=== PATIENT | male | born 1940 | race Caucasian/White ===

== ENCOUNTER → 2020-07-22 11:14 | Outpatient (CLI) | payer OTHER, SELFPAY ==
--- NOTE | ~2020-07-22 | XR_ITS ---
EXAMINATION: XR lumbar spine 2-3V DATE: 07/22/2020 11:43 INDICATION: Bilateral lower limb numbness and low back pain TECHNIQUE: Anteroposterior and lateral views of the lumbar spine, and cone-down lateral view of the l umbosacral junction were obtained. COMPARISON: CT, 12/25/2016 FINDINGS: There are age indeterminate compression versus burst fractures of the T12, L3, and L4 verte bral bodies. Bone alignment is normal. There is mild facet osteoarthritis of the lower lumbar spine. Brachytherapy seeds are noted in the prostate. There is calcified atherosclerosis. Cholelithiasis is noted. IMPRESSION: 1. Age-indeterminate compression versus burst fractures of the T12, L3, and L4 vertebral bodies. Reviewed, dictated and finalized at location A. ORK SUPPORT ADMINISTRATOR
== END ==
PROVIDERS: PCP Family Medicine Adolescent Medicine; Visit Provider Family Medicine Adolescent Medicine
DX: M54.5 Low back pain (principal); R93.7 Abnormal findings on diagnostic imaging of other parts of musculoskeletal system
CPT/HCPCS: 72100

== ENCOUNTER 2020-08-01 12:00 | Emergency (ER) | payer OTHER, SELFPAY ==
--- NOTE | ~2020-08-01 | XR_ITS ---
XR hip LT 2V w AP pelvis DATE: 08/01/2020 13:55 INDICATION: Fall. Left hip pain. TECHNIQUE: AP pelvis. AP and lateral views of left hip. COMPARISON: None FINDINGS: There is diffuse osteopenia. The pubic symphysis and sacroiliac joints are intact. Hip joint spaces appear symmetric and relativel y preserved. The psoas of hip dislocation on either side. There is evidence of a probable subtle nondisplaced left subcapital femoral neck fracture. CT examina tion of left hip is recommended to confirm the suspected acute left subcapital femoral neck fracture. Fracture deformities of L3 and L4, also present on 07/22/2020 lumbar spine. Multiple radial opaque seeds overlie the prostate bed. IMPRESSION: Suspected acute left subcapital femoral neck nondisplaced fracture; consider CT left exam ination to confirm acute fracture L3 and L4 fractures Diffuse osteopenia Reviewed, dictated and finalized at location B. MODEL DEPARTMENT SUPERVISOR IMPRESSION: Suspected acute left subcapital femoral neck nondisplaced fracture; consider CT left examination to confirm acute fracture L3 and L4 fractures Diffuse osteopenia
--- NOTE | ~2020-08-01 | CT_ITS ---
EXAMINATION: CT thoracic lumbar wo con DATE: 08/01/2020 13:50 INDICATION: Low back pain. Fall. TECHNIQUE: Computed tomography (CT) of the thoracic and lumbar spine was performed without intravenou s contrast. Automated exposure control and iterative reconstruction technique were employed. The dose -length product was 852.47 mGy-cm. COMPARISON: Chest CT 12/25/2016, lumbar spine radiographs 07/22/2020 FINDINGS: CT THORACIC SPINE: There are trace pleural effusions. There is a small sliding hiatal hernia. Calcifi ed left hilar lymph nodes are consistent with old granulomatous disease. There are gallstones in the gallbladder, which is normal in size. Bone alignment is normal. There is a burst fracture of superior endplate of T3 with 1/5 loss of height. There is a burst fracture of T12 with 3/5 loss of height, co pedro luis cleft, and retropulsion of bone 4 mm into central spinal canal. There is a hemangioma in T7 emilia tebral body. Vertebral body heights are normal. There is multilevel mild facet joint osteoarthritis. No neural foraminal stenosis. There is mild central canal stenosis at T12. CT LUMBAR SPINE: There is 4 degrees dextrocurvature of lumbar spine. There is a burst fracture of L3 with 4/5 loss of height and retropulsion of bone 3 mm into central spinal canal. There is a burst fra cture of L4 with 4/5 loss of height and retropulsion of bone 4 mm into central spinal canal. The foll owing disc levels are specifically discussed: L1-L2: The disc does not extend beyond the endplate margin. There is mild bilateral facet joint osteo arthritis. There is no neural foraminal stenosis. There is no central canal stenosis. L2-L3: The disc is bulging. There is mild bilateral facet joint osteoarthritis. There is moderate aftab ateral neural foraminal stenosis. There is moderate central canal stenosis. L3-L4: The disc is bulging. There is mild bilateral facet joint osteoarthritis. There is moderate aftab ateral neural foraminal stenosis. There is moderate central canal stenosis. L4-L5: The disc is bulging. There is mild bilateral facet joint osteoarthritis. There is moderate aftab ateral neural foraminal stenosis. There is moderate central canal stenosis. L5-S1: The disc is bulging. There is moderate bilateral facet joint osteoarthritis. There is mild aftab ateral neural foraminal stenosis. There is mild central canal stenosis. IMPRESSION: 1. Acute versus subacute T3 burst fracture. 2. Subacute T12 burst fracture. 3. Subacute versus chronic L3 and L4 burst fractures. 4. Mild thoracic spondylosis and moderate lumbar spondylosis. Reviewed, dictated and finalized at location A. MBLER FILTERS
[2020-08-01 12:14] VITALS: BP 106/64; PULSE 114; RESP 20; TEMP 37; O2SAT 95
--- NOTE | 2020-08-01 13:07 | ED.BACK ---
HPI - Back Pain/Injury General Chief Complaint: Fall Stated Complaint: FALL Time Seen by Provider: 08/01/20 12:12 Source: patient Mode of arrival: wheelchair Limitations: no limitations History of Present Illness HPI Narrative: Patient is 80-year-old male complaining of low back pain and left pelvic pain after he slid down from his recliner prior to arrival. Patient denies any head, neck, chest or any other extremity pain/injury. Patient denies any loss of consciousness. Per patient has a history of balance problems and generalized weakness problems and he tried to get out of his recliner on his own without her help, which she usually helps him get up and that is why he slid down. Related Data Home Medications Medication Instructions Recorded Confirmed ascorbic acid (vitamin C) [Vitamin 500 mg PO DAILY 08/01/20 C] atorvastatin 80 mg PO DAILY 08/01/20 calcitonin (salmon) 1 spray INTRANASAL (ALT) DAILY 08/01/20 clopidogrel 75 mg PO DAILY 08/01/20 diltiazem HCl 30 mg PO BID 08/01/20 furosemide 40 mg PO DAILY 08/01/20 glimepiride 1 mg PO DAILY 08/01/20 hydroxyurea 1,000 mg PO DAILY 08/01/20 labetalol 200 mg PO DAILY 08/01/20 losartan 100 mg PO DAILY 08/01/20 Allergies Allergy/AdvReac Type Severity Reaction Status Date / Time morphine AdvReac Nausea Verified 08/01/20 13:03 Review of Systems Review of Systems: All systems reviewed & are unremarkable except as noted in HPI and below Constitutional: Constitutional: Denies body ache(s), Denies chills, Denies excessive sweating, Denies fatigue, Denies fever(s), Denies headache(s), Denies lethargy, Denies malaise, Denies weakness and Denies weight loss Eyes: Eyes: Denies blurry vision, Denies change in vision and Denies loss of vision ENT: Denies dizziness, Denies ear discharge, Denies headache(s), Denies lip swelling, Denies epistaxis, Denies nasal congestion, Denies neck pain, Denies throat swelling and Denies tongue swelling Cardiovascular: Cardiovascular: Denies chest pain, Denies chest pain at rest, Denies chest pain with activity, Denies diaphoresis, Denies rapid heart rate, Denies edema, Denies irregular heart rhythm, Denies lightheadedness, Denies palpitations, Denies dyspnea and Denies dyspnea on exertion Respiratory: Respiratory: Denies chest congestion, Denies cough, Denies hemoptysis, Denies dyspnea and Denies dyspnea on exertion Gastrointestinal: Gastrointestinal: Denies abdominal pain, Denies melena, Denies hematochezia, Denies diarrhea, Denies nausea, Denies vomiting and Denies hematemesis Musculoskeletal: Musculoskeletal: Denies deformity, Denies joint swelling, Denies neck pain and Denies numbness Neurologic: Denies Abnormal speech present, Denies abnormal gait, Denies confusion, Denies dizziness, Denies headache(s), Denies focal weakness, Denies loss of vision, Denies numbness, Denies Other visual disturbances, Denies Sensory deficit (Neuro) and Denies weakness Psychiatric: Psychiatric: Denies confusion, Denies depression, Denies auditory hallucinations, Denies homicidal ideation and Denies suicidal ideation Endocrine: Endocrine: Denies cold intolerance, Denies excessive sweating, Denies fatigue, Denies heat intolerance and Denies palpitations Hematologic/Lymphatic: Hematologic/Lymphatic: Denies easy bleeding and Denies easy bruising Allergic/Immunologic: Allergic/Immunologic: Denies lip swelling, Denies throat swelling and Denies tongue swelling PMFSH Social History Social History Alcohol intake: current Exam Const: General: cooperative, comfortable, no acute distress, well developed, alert and awake; No confusion Orientation/consciousness: oriented to person, oriented to place, oriented to time, patient oriented x3 and No confusion Limitations: no limitations Other: Frail HENMT: Head: normal to inspection, normocephalic and atraumatic Ears: hearing grossly normal bilaterally, TM normal on the right and TM normal on the left Gene
[2020-08-01] MEDS: HYDROmorphone HCL INJ (*CRX) 1 MG/ML SYR 0.5 MG IV PUSH ×3 (13:25→19:32)
[2020-08-01 16:12] VITALS: BP 105/59; PULSE 97; RESP 20; O2SAT 94
[2020-08-01] MEDS: LACTATED RINGERS 1,000 ML 150 ML IV CONT (16:41)
[2020-08-01 19:36] VITALS: BP 131/53; PULSE 104; RESP 20; TEMP 37.3; O2SAT 96
== END 2020-08-01 19:39 | disposition short-term general hospital (02) ==
PROVIDERS: Emergency Provider Emergency Medicine; PCP Family Medicine Adolescent Medicine
DX: S22.031A Stable burst fracture of third thoracic vertebra, initial encounter for closed fracture (principal); S22.081A Stable burst fracture of T11-T12 vertebra, initial encounter for closed fracture; S32.031A Stable burst fracture of third lumbar vertebra, initial encounter for closed fracture; S32.041A Stable burst fracture of fourth lumbar vertebra, initial encounter for closed fracture; S72.012A Unspecified intracapsular fracture of left femur, initial encounter for closed fracture; M47.814 Spondylosis without myelopathy or radiculopathy, thoracic region; M47.816 Spondylosis without myelopathy or radiculopathy, lumbar region; M85.80 Other specified disorders of bone density and structure, unspecified site; W07.XXXA Fall from chair, initial encounter
CPT/HCPCS: 72128; 72131; 73502; 96361; 96374; 96376; 99285; J1170; J7120

== ENCOUNTER 2020-08-06 16:20 | IRF | payer MEDICARE, OTHER, SELFPAY ==
[2020-08-06 17:00] VITALS: BP 135/64; PULSE 81; RESP 20; TEMP 36.9; O2SAT 96; BMI 23.3
--- NOTE | 2020-08-06 17:14 | ADMGEN ---
This patient, Kalyan Martinez, was admitted to [facility] Room 225-01. Patient/family oriented to hospital policies and general routines including ID bracelet, bed and alarms, visiting hours, pain management, procedures, bathroom and other care routines, personal items, smoking policy, room service/diet, and visiting hours. Information on how to activate the Rapid Response Team has been discussed. Patient/Family are encouraged to report perceived risks to care and to ask questions if they do not understand what they are told or what they should do.
[2020-08-06 18:15] LABS: Glucose Point of Care 117 (65-105)
[2020-08-06 20:00] VITALS: PULSE 75; RESP 18; O2SAT 95
[2020-08-06 22:00] VITALS: BP 146/61; PULSE 75; RESP 18; TEMP 36.6; O2SAT 95
[2020-08-06 22:58] LABS: Glucose Point of Care 130 (65-105)
[2020-08-07 05:40] LABS: Basophils Absolute Auto 0.2 K/mm3 (0.0-0.1); Basophils Percent Auto 0.9 % (0.2-1.2); Eosinophils Absolute Auto 0.3 K/mm3 (0-0.3); Eosinophils Percent Auto 1.5 % (0-4.4); Hematocrit 36.2 % (42.0-52.0); Hemoglobin 12.2 g/dL (14.0-18.0); Immature Granulocyte Absolute 0.18 K/mm3 (0.00-0.031); Immature Granulocyte Percent A 0.9 % (0-0.5); Lymphocytes Absolute Auto 1.05 K/mm3 (0.9-3.2); Lymphocytes Percent Auto 5.2 % (18.3-44.2); Mean Corpuscular HGB Conc 33.7 g/dl (32-36); Mean Corpuscular Hemoglobin 42.7 pg (26-34); Mean Corpuscular Volume 126.6 fl (80-100); Mean Platelet Volume 10.3 fl (7.4-10.4); Monocytes Absolute Auto 0.7 K/mm3 (0.1-0.6); Monocytes Percent Auto 3.6 % (2.6-8.5); Neutrophils Absolute Auto 17.7 K/mm3 (1.3-6.7); Neutrophils Percent Auto 87.9 % (45.5-73.1); Platelet Count Result 368 k/mm3 (150-375); Red Blood Count 2.86 M/mm3 (4.6-6.20); Red Cell Distribution Width 13.1 % (11.5-14.5); White Blood Count 20.1 K/mm3 (4.5-10.0)
[2020-08-07 06:00] VITALS: BP 145/69; PULSE 85; RESP 18; TEMP 36.7; O2SAT 94
[2020-08-07 06:01] LABS: Anion Gap 3 mmol/L (8-16); Blood Urea Nitrogen 16 mg/dL (9-20); Calcium 7.6 mg/dL (8.4-10.2); Carbon Dioxide 28 mmol/L (22-30); Chloride 108 mmol/L (98-107); Estimated CRCL calculation 57 ml/min; Estimated Glomerular Filt Rate > 60; Glucose 92 mg/dL (75-110); Potassium 3.9 mmol/L (3.4-5.0); Sodium 139 mmol/L (137-145)
[2020-08-07 06:54] LABS: Glucose Point of Care 117 (65-105)
[2020-08-07 07:39] LABS: Hemoglobin A1C 5.4 % (<5.7)
[2020-08-07 08:00] VITALS: PULSE 85; RESP 18; O2SAT 94
[2020-08-07] MEDS: dilTIAZem HCL 30 MG TABLET PO ×3 (08:35→17:58)
[2020-08-07] MEDS: CLOPIDOGREL BISULFATE 75 MG TABLET PO (08:36)
[2020-08-07] MEDS: ATORVASTATIN 40 MG TABLET 80 MG PO (08:36)
[2020-08-07] MEDS: GLIMEPIRIDE 1 MG TABLET PO (08:36)
[2020-08-07] MEDS: FUROSEMIDE 40 MG TABLET PO (08:36)
[2020-08-07] MEDS: LOSARTAN POTASSIUM 100 MG TABLET PO (08:37)
[2020-08-07] MEDS: HYDROXYUREA (*CHEMO) 500 MG CAPSULE 1000 MG PO (08:37)
[2020-08-07] MEDS: CALCITONIN NASAL 200 UNITS/SPRAY 3.7 ML BOTTLE 1 SPRAY NASAL (08:38)
[2020-08-07 08:44] VITALS: TEMP 36.7
[2020-08-07] MEDS: ACETAMINOPHEN 500 MG TABLET 1000 MG PO (08:44)
--- NOTE | 2020-08-07 10:46 | PCWOUND ---
WOCN NOTE Received consult for patient who has wounds to scalp and upper extremities. Patient already has orders for wound care from doctors herrera Nunez. Spoke with Marychuy ORONA for patient, who states that patient refusing to have dressings changed by her due to pain. Will not see patient as there are no changes to his care to be made. Will follow if needed.
[2020-08-07 11:54] LABS: Glucose Point of Care 201 (65-105)
[2020-08-07 12:43] VITALS: BMI 23.3
--- NOTE | 2020-08-07 13:01 | WPDREHABHP ---
H&P: HPI History of Present Illness Date/Time: 08/07/20 13:01 HISTORY OF PRESENT ILLNESS: The patient's primary rehab impairment category is major multiple trauma without brain or spinal cord injury The etiologic diagnosis is left femur neck fracture, T3-T4 burst fracture, and L3-4 compression fractures I saw this patient [id number] on August 07, 2020 at 12 noon The patient is a 80 years old right-handed male with a past medical history of diabetes mellitus, polycythemia vera, prostatic cancer, aortic dissection, squamous cell skin cancer who presented to [facility] on August 01, 2020 to slipping off his recliner. The patient's family had to help him up and he was unable to ambulate. Imaging demonstrated a left femur neck fracture, T3-T4 burst fractures, and L3-4 compression fractures. The patient was transferred to [facility] the same day for orthopedic evaluation. Orthopedic surgery trauma was consulted. MRI revealed a left nondisplaced subcapital femur neck fracture. Patient underwent a percutaneous left hip pinning on August 03, [address] Basilio bates. He is weight-bearing at touch toe to the left lower extremity with a walker. Neurosurgery was consulted for the T3-T4 burst fractures and L3-L4 compression fractures. The CT scan of the thoracic and lumbar spine demonstrated a T3 burst fracture a T12 burst fracture with 40% height loss and 4mm retropulsion into the canal as well as L3 and L4 compression fractures with minimal retropulsion into the canal. The patient was at his neurological baseline upon examination and the plan is for non operative management with a TLSO Brace. The fractures are thought to be pathological in nature. Oncology was consulted and per radiation oncologist, the patient will not have a radiation or oncology treatment while inpatient for rehab. Patient's hospitalization has been significant for postoperative pain, hypertension, cytosis, hypokalemia hypocalcemia, hypertension. The patient's pain is now controlled on oral analgesics, attention has resolved, and hypertension is being managed with oral medications and leukocytosis is down trending. Patient's baseline WBC levels were 16 to 18 patient has a follow-up scheduled on September 12, 2020 with in [facility] 6 a. Patient will discharged to rehab on Plavix for long-term DVT prophylaxis #COVID: the patient has not traveled outside the [place] or had contact with someone who is ill that has traveled outside the [place] in the past 21 days. The patient has not traveled to an area of the [place] that is experiencing known transmission of the Coronavirus and has not had close personal contact with anyone that has. The patient does not have a fever patient is not experiencing lower respiratory illness symptoms negative COVID test on August 06, 2020 therapy was initiated at the acute care facility and the patient was transferred to us from [facility] on August 06, 2020 # past surgery or falls the patient has had a major surgery in the last 100 days the patient has had multiple falls in the past year the patient has had falls with injury in the past PAST MEDICAL HISTORY: diabetes mellitus, polycythemia vera, squamous cell skin cancer, prostatic cancer, and aortic dissection. 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 and lives with . He denies tobacco, alcohol, or drug abuse. He is a former smoker and quit in 1978. The patient is lives with his in a 1 level home with sunken living room with 1 step to enter. The patient was independent previously and used a walker the last 2 to 3 weeks. is available to assist him 14/02 FAMILY HISTORY: sister with breast cancer, colon cancer. PRIOR LEVEL OF FUNCTION: Eating was [INDEPENDENT] Oral Care was [INDEPENDENT] Toileting Hygiene was [INDEPENDENT] Shower/Bathing was [INDEPENDENT] Upper Body D
[2020-08-07 14:00] VITALS: BP 117/58; PULSE 86; RESP 18; TEMP 37.3; O2SAT 96
--- NOTE | 2020-08-07 14:20 | RPD ---
INDIVIDUALIZED PLAN OF CARE FOR Kalyan Martinez Brief Synthesis of Pre-Admission Screen, Post-Admission Evaluation and Therapy Evaluations: The patient presents to rehab with major multiple trauma of left femoral neck fracture, T3/T4 burst fractures, and L3/L4 compression fracture. Comorbidities include polycythemia vera, squamous cell carcinoma, prostate cancer, aortic dissection, acute post-traumatic pain, status post percutaneous left hip pinning, hypertension, multiple skin lesions, scalp laceration with exposed bone, hypokalemia, hypocalcemia, and leukocytosis. The complexity of the patient's medical management, nursing, and therapy needs require an inpatient rehab hospital stay with a physician-led interdisciplinary team approach. The patient?s needs will be best met in an intensive program vs. at a lower level of care. The patient requires physician services for medical oversight, management of postop complications in setting of present comorbidities, and pain management. Post-op complications have included acute blood loss anemia, acute post-operative pain, hypotension, hypertension, hypokalemia, hypocalcemia, and leukocytosis. He will be followed at least three times a week by the rehabilitation physician. Orthopedics may see the patient at the frequency of their discretion. The patient requires nursing services for DVT prophylactics, infection protection, medication management and education, pressure relief, and wound care. Deficits include:ADLs, Balance, Endurance, Family Training/Education, Mobility, Pain Management, ROM, Safety, Strength, and Transfers. Paste Mixer Liquid/Case Management for: Discharge Planning and Patient/Family Counseling Physical Therapy: 5 days per week for 90 minutes. Treatments may include: Therapeutic Exercise, Gait Training, Neuromuscular Re-education, Transfer Training, Community Reintegration, Bed Mobility, Patient/Family Education, Wheelchair Mobility Group Therapy/Concurrent Therapy Rationales: -Improve attention span during functional activities in a distracted environment. -Enhance problem solving and/or adequate judgment skills during functional activities in a distracted environment. -Promote increased safety awareness in a distracted environment to reduce fall risk with functional tasks, transfers, and ambulation to allow a more safe, self-sufficient return to the home environment. -Improve dynamic balance skills to promote safety and independence with functional activities in a distracted environment for maximum gain. Occupational Therapy: 5 days per week for 90 minutes. Treatments may include: Therapeutic Exercise, Therapeutic Activity, Cognitive Training, Self-Care Transfer Training, Community Reintegration, Home Management, Patient/Family Education, Wheelchair Mobility Training, Energy Conservation Training Group Therapy/Concurrent Therapy Rationales: -Allow therapist to observe and teach generalization and carry-over of skills learned in individual therapy. -Enhance problem solving and sequencing skills during therapeutic activities in a distracted environment. -Promote increased safety awareness in a realistic setting to reduce fall risk with functional tasks due to visual and verbal distractions. -Increase functional level with ADLs, ADL transfers and use of adaptive equipment through therapeutic activities with others while promoting safety to allow a more safe, self-sufficient return home. Medical Prognosis: Good Anticipated Length of Stay: 14 days Rehab Goals: Eating Goal: 05-Setup or Clean Up Assistance Oral Hygiene Goal: 05-Setup or Clean Up Assistance Toileting Hygiene Goal: 06-Independent Shower/Bathe Self Goal: 03-Partial/Moderate Assistance Upper Body Dressing Goal: 03-Partial/Moderate Assistance Lower Body Dressing Goal: 03-Partial/Moderate Assistance Putting On/Taking Off Footwear Goal: 02-Substantial/Maximal Assistance Rolling Left and Right Goal: 06-Independent Sit to Lying Goal: 06-Independent
[2020-08-07 16:48] LABS: Glucose Point of Care 96 (65-105)
[2020-08-07 20:00] VITALS: PULSE 86; RESP 18; O2SAT 96
[2020-08-07 22:00] VITALS: BP 137/63; PULSE 75; RESP 18; TEMP 36.7; O2SAT 97
[2020-08-08 03:44] LABS: Glucose Point of Care 107 (65-105)
[2020-08-08 05:11] LABS: Basophils Absolute Auto 0.2 K/mm3 (0.0-0.1); Basophils Percent Auto 0.9 % (0.2-1.2); Eosinophils Absolute Auto 0.2 K/mm3 (0-0.3); Eosinophils Percent Auto 1.5 % (0-4.4); Hematocrit 35.8 % (42.0-52.0); Hemoglobin 11.9 g/dL (14.0-18.0); Immature Granulocyte Absolute 0.15 K/mm3 (0.00-0.031); Immature Granulocyte Percent A 0.9 % (0-0.5); Lymphocytes Absolute Auto 1.17 K/mm3 (0.9-3.2); Lymphocytes Percent Auto 7.2 % (18.3-44.2); Mean Corpuscular HGB Conc 33.2 g/dl (32-36); Mean Corpuscular Hemoglobin 41.3 pg (26-34); Mean Corpuscular Volume 124.3 fl (80-100); Mean Platelet Volume 9.9 fl (7.4-10.4); Monocytes Absolute Auto 0.7 K/mm3 (0.1-0.6); Monocytes Percent Auto 4.4 % (2.6-8.5); Neutrophils Absolute Auto 13.9 K/mm3 (1.3-6.7); Neutrophils Percent Auto 85.1 % (45.5-73.1); Platelet Count Result 358 k/mm3 (150-375); Red Blood Count 2.88 M/mm3 (4.6-6.20); Red Cell Distribution Width 13.2 % (11.5-14.5); White Blood Count 16.3 K/mm3 (4.5-10.0)
[2020-08-08 06:00] VITALS: BP 144/59; PULSE 75; RESP 18; TEMP 36.7; O2SAT 97
[2020-08-08 06:05] LABS: Glucose Point of Care 84 (65-105)
[2020-08-08] MEDS: FUROSEMIDE 40 MG TABLET PO (08:45)
[2020-08-08] MEDS: dilTIAZem HCL 30 MG TABLET PO ×2 (08:45→17:01)
[2020-08-08] MEDS: GLIMEPIRIDE 1 MG TABLET PO (08:45)
[2020-08-08] MEDS: HYDROXYUREA (*CHEMO) 500 MG CAPSULE 1000 MG PO (08:46)
[2020-08-08] MEDS: CALCITONIN NASAL 200 UNITS/SPRAY 3.7 ML BOTTLE 1 SPRAY NASAL (08:46)
[2020-08-08] MEDS: CLOPIDOGREL BISULFATE 75 MG TABLET PO (08:46)
[2020-08-08] MEDS: ATORVASTATIN 40 MG TABLET 80 MG PO (08:46)
[2020-08-08] MEDS: LOSARTAN POTASSIUM 100 MG TABLET PO (08:46)
--- NOTE | 2020-08-08 10:29 | WPDNEURORHBP ---
Subjective Date/time seen: 08/08/20 10:29 80 years old with major multiple trauma without brain or spinal cord injuries trauma includes left femur neck fracture T3-T4 burst fracture at L3-4 compression fracture, his lab today revealed WBC 16.3 which is less than 20.1 when he came in globin 11.9 platelet count of 358, has remained afebrile with temp of 36.7? 75 patient 18 pulse ox 97% on room air blood pressure 144/59 Review of Systems Review of Systems: All systems reviewed & are unremarkable except as noted in HPI and below Functional Status Ambulation Ability Ability to Ambulate 10 Feet: Moderate Assistance X 1 Ambulation Assistive Devices: Walker, Platform Exam Const: General: cooperative and no acute distress Nutritional Appearance: average body habitus Orientation/consciousness: patient oriented x3 HENMT: Head: normocephalic Ears: other ( hearing deficit) General nose exam: Normal nares present and No nasal discharge present Face and sinus: normal facial exam Mouth: Yes Normal oral and palatal mucosa present Eyes: General: appearance normal, both eyes and all related structures Resp: Effort & Inspection: normal respiratory effort Auscultation: clear to auscultation bilaterally Cardio: Jugular venous distension: no JVD Rate: regular rate Rhythm: regular rhythm GI: Auscultation: normal bowel sounds Skin: General skin exam: crusts, dry skin, eschar and scars Lesions: lesion noted Wounds: wounds noted Nails: normal Neuro: General: patient oriented x3 and moves all extremities Cranial nerves: Yes CN's II-XII intact bilaterally Cognition (Neuro): normal cognition Speech: normal speech Gait exam (Neuro): Normal gait present Deep tendon reflexes (DTR's): Right triceps reflex intensity grade: 1+, Left triceps reflex intensity grade: 1+, Rt Biceps (C5, C6): 1+, Left biceps reflex intensity grade: 1+, Right brachioradialis reflex intensity grade: 1+, Left brachioradialis reflex intensity grade: 1+, Right patellar reflex intensity grade: 1+, Left patellar reflex intensity grade: 1+, Right ankle reflex intensity grade: 1+ and Left ankle reflex intensity grade: 1+ Plantar Reflex Responses: downgoing: bilateral Coordination: [id number] test normal Psych: Appearance: grossly normal Objective Data Vital Signs Vital Signs: Vital Signs - 24 hr 08/07/20 14:00 08/07/20 20:00 08/07/20 22:00 Temperature 37.3 C 36.7 C Pulse Rate 86 86 75 Respiratory Rate 18 18 18 Blood Pressure 117/58 L 137/63 Pulse Oximetry 96 96 97 08/08/20 06:00 Temperature 36.7 C Pulse Rate 75 Respiratory Rate 18 Blood Pressure 144/59 H Pulse Oximetry 97 Intake/Output Intake/Output: Intake & Output 08/05/20 08/06/20 08/07/20 08/08/20 23:59 23:59 23:59 23:59 Intake Total 240 360 240 Balance 240 360 240 Meds/Results Medications: Active Medications Generic Name Dose Route Start Last Admin Trade Name Freq PRN Reason Stop Dose Admin Acetaminophen 1,000 mg 08/06/20 17:57 08/07/20 08:44 Acetaminophen 500 Mg Tablet PO 1,000 mg Q6H PRN Administration Pain, Mild Atorvastatin Calcium 80 mg 08/07/20 09:00 08/08/20 08:46 Atorvastatin 40 Mg Tablet PO 80 mg DAILY NIKA Administration Calcitonin [place] 1 spray 08/07/20 09:00 08/08/20 08:46 Calcitonin Nasal 200 Units/[place] 3.7 Ml Bottle NASAL 1 spray DAILY NIKA Administration Clopidogrel Bisulfate 75 mg 08/07/20 09:00 08/08/20 08:46 Clopidogrel Bisulfate 75 Mg Tablet PO 75 mg DAILY NIKA Administration Diltiazem HCl 30 mg 08/06/20 17:00 08/08/20 08:45 Diltiazem Hcl 30 Mg Tablet PO 30 mg BID NIKA Administration Furosemide 40 mg 08/07/20 09:00 08/08/20 08:45 Furosemide 40 Mg Tablet PO 40 mg DAILY NIKA Administration Glimepiride 1 mg 08/07/20 08:00 08/08/20 08:45 Glimepiride 1 Mg Tablet PO 1 mg DAILY@0800 NIKA Administration Hydroxyurea 1,000 mg 08/07/20 09:00 08/08/20 08:46 Hydroxyurea (*Chemo) 500 M
[2020-08-08] MEDS: ACETAMINOPHEN 500 MG TABLET 1000 MG PO (12:02)
[2020-08-08 14:00] VITALS: BP 111/61; PULSE 70; RESP 17; TEMP 37; O2SAT 94
[2020-08-08 20:47] VITALS: BP 126/59; PULSE 82; RESP 18; TEMP 36.8; O2SAT 97
[2020-08-09 06:00] VITALS: BP 126/57; PULSE 82; RESP 18; TEMP 36.9; O2SAT 95
[2020-08-09 06:23] LABS: Glucose Point of Care 108 (65-105)
[2020-08-09] MEDS: CLOPIDOGREL BISULFATE 75 MG TABLET PO (08:22)
[2020-08-09] MEDS: GLIMEPIRIDE 1 MG TABLET PO (08:22)
[2020-08-09] MEDS: FUROSEMIDE 40 MG TABLET PO (08:22)
[2020-08-09] MEDS: ATORVASTATIN 40 MG TABLET 80 MG PO (08:23)
[2020-08-09] MEDS: LOSARTAN POTASSIUM 100 MG TABLET PO (08:23)
[2020-08-09] MEDS: dilTIAZem HCL 30 MG TABLET PO ×2 (08:23→16:53)
[2020-08-09] MEDS: HYDROXYUREA (*CHEMO) 500 MG CAPSULE 1000 MG PO (08:23)
[2020-08-09] MEDS: CALCITONIN NASAL 200 UNITS/SPRAY 3.7 ML BOTTLE 1 SPRAY NASAL (08:25)
[2020-08-09] MEDS: ACETAMINOPHEN 500 MG TABLET 1000 MG PO (12:00)
[2020-08-09 14:00] VITALS: BP 129/57; PULSE 86; RESP 18; TEMP 36.6; O2SAT 97
[2020-08-09 20:47] VITALS: BP 106/51; PULSE 83; RESP 18; TEMP 37; O2SAT 96
[2020-08-10 06:00] VITALS: BP 136/76; PULSE 89; RESP 20; TEMP 37.2; O2SAT 98
[2020-08-10 06:49] LABS: Glucose Point of Care 90 (65-105)
[2020-08-10] MEDS: oxyCODONE HCL (*CRX) 5 MG TAB IR PO (08:45)
[2020-08-10] MEDS: CALCITONIN NASAL 200 UNITS/SPRAY 3.7 ML BOTTLE 1 SPRAY NASAL (08:46)
[2020-08-10] MEDS: ATORVASTATIN 40 MG TABLET 80 MG PO (08:47)
[2020-08-10] MEDS: CLOPIDOGREL BISULFATE 75 MG TABLET PO (08:47)
[2020-08-10] MEDS: dilTIAZem HCL 30 MG TABLET PO ×2 (08:47→17:33)
[2020-08-10] MEDS: FUROSEMIDE 40 MG TABLET PO (08:47)
[2020-08-10] MEDS: GLIMEPIRIDE 1 MG TABLET PO (08:47)
[2020-08-10] MEDS: HYDROXYUREA (*CHEMO) 500 MG CAPSULE 1000 MG PO (08:47)
[2020-08-10] MEDS: LOSARTAN POTASSIUM 100 MG TABLET PO (08:48)
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
[2020-08-10 14:00] VITALS: BP 120/50; PULSE 84; RESP 18; TEMP 36.4; O2SAT 98
[2020-08-10 21:18] VITALS: BP 123/51; PULSE 83; RESP 18; TEMP 37; O2SAT 97
[2020-08-11 05:56] VITALS: BP 122/61; PULSE 80; RESP 20; TEMP 37.1; O2SAT 97
[2020-08-11 06:27] LABS: Glucose Point of Care 99 (65-105)
[2020-08-11] MEDS: GLIMEPIRIDE 1 MG TABLET PO (07:48)
[2020-08-11] MEDS: dilTIAZem HCL 30 MG TABLET PO ×2 (08:38→17:27)
[2020-08-11] MEDS: ATORVASTATIN 40 MG TABLET 80 MG PO (08:38)
[2020-08-11] MEDS: FUROSEMIDE 40 MG TABLET PO (08:38)
[2020-08-11] MEDS: CLOPIDOGREL BISULFATE 75 MG TABLET PO (08:38)
[2020-08-11] MEDS: LOSARTAN POTASSIUM 100 MG TABLET PO (08:38)
[2020-08-11] MEDS: HYDROXYUREA (*CHEMO) 500 MG CAPSULE 1000 MG PO (08:39)
[2020-08-11] MEDS: CALCITONIN NASAL 200 UNITS/SPRAY 3.7 ML BOTTLE 1 SPRAY NASAL (08:39)
--- NOTE | 2020-08-11 10:55 | PCPTNOTE ---
Kalyan Christianson Juan was evaluated for a Left Platform wheeled walker on 08/11/2020 by this physical therapist veterinarian assistant. The Left Platform wheeled walker will resolve patient's mobility limitations and will be used for ADL's within the home. The patient can safely use the Left platform wheeled walker. ?The Left platform wheeled walker will resolve the patient?s mobility deficits, including decreased balance, decreased endurance, decreased strength, decreased safety awareness, and pain. Jeannine Dolan, PIPE ROLLER
[2020-08-11 14:00] VITALS: BP 127/53; PULSE 86; RESP 18; TEMP 36.7; O2SAT 96
[2020-08-11] MEDS: ACETAMINOPHEN 500 MG TABLET 1000 MG PO (14:52)
[2020-08-12 05:48] LABS: Glucose Point of Care 82 (65-105)
[2020-08-12 06:00] VITALS: BP 141/63; PULSE 83; RESP 20; TEMP 36.1
[2020-08-12 08:00] VITALS: PULSE 83; RESP 20; O2SAT 96
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
[2020-08-12] MEDS: CLOPIDOGREL BISULFATE 75 MG TABLET PO (08:32)
[2020-08-12] MEDS: FUROSEMIDE 40 MG TABLET PO (08:32)
[2020-08-12] MEDS: dilTIAZem HCL 30 MG TABLET PO ×2 (08:32→17:40)
[2020-08-12] MEDS: LOSARTAN POTASSIUM 100 MG TABLET PO (08:32)
[2020-08-12] MEDS: ATORVASTATIN 40 MG TABLET 80 MG PO (08:32)
[2020-08-12] MEDS: HYDROXYUREA (*CHEMO) 500 MG CAPSULE 1000 MG PO (08:33)
[2020-08-12] MEDS: GLIMEPIRIDE 1 MG TABLET PO (08:33)
[2020-08-12] MEDS: CALCITONIN NASAL 200 UNITS/SPRAY 3.7 ML BOTTLE 1 SPRAY NASAL (08:33)
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
--- NOTE | 2020-08-12 13:03 | PCDIET ---
Nutrition Follow-Up Complete: Nutrition Diagnosis: Involuntary weight loss related to decreased appetite as evidenced by patient reporting 50 pound weight loss over the past year which is significant at 24% weight loss. Nutrition Goal: Patient to consume 75% of meals/supplements or greater and maintain weight. Goal in progress. Patient has consumed only 35% of meals since last review, on average, but has been taking Ensure Enlive. Requesting to make protein shake from Enlive. Recommend Ensure Enlive (350kcal, 20g protein) mixed with Frozen Nutritional Treat (300kcal, 9g protein) with meals. Patient agreeable to this. Last recorded weight is 71.8 kg. Recommend obtaining new weight. Bowel Motility: +BM today. Labs Reviewed: Glu (82) Meds Noted: Lipitor, Calcitonin, Lasix, Amaryl, Hydrea, Cozaar Additional Notes: Dressing to left hip incision. Multiple areas of skin cancer lesions visible but no pressure sores documented. Nutrition Monitoring and Evaluation: Follow up in 3 days.
[2020-08-12 14:00] VITALS: BP 112/53; PULSE 77; RESP 18; TEMP 36.9; O2SAT 100
[2020-08-12 20:00] VITALS: PULSE 79; RESP 20; O2SAT 97
[2020-08-12 20:15] VITALS: BP 107/55; PULSE 79; RESP 20; TEMP 36.8; O2SAT 97
[2020-08-13 05:43] VITALS: BP 120/53; PULSE 80; RESP 18; TEMP 36.6; O2SAT 96
[2020-08-13 05:53] LABS: Glucose Point of Care 84 (65-105)
[2020-08-13] MEDS: HYDROXYUREA (*CHEMO) 500 MG CAPSULE 1000 MG PO (08:44)
[2020-08-13] MEDS: CLOPIDOGREL BISULFATE 75 MG TABLET PO (08:44)
[2020-08-13] MEDS: LOSARTAN POTASSIUM 100 MG TABLET PO (08:45)
[2020-08-13] MEDS: dilTIAZem HCL 30 MG TABLET PO ×2 (08:45→17:22)
[2020-08-13] MEDS: CALCITONIN NASAL 200 UNITS/SPRAY 3.7 ML BOTTLE 1 SPRAY NASAL (08:45)
[2020-08-13] MEDS: ATORVASTATIN 40 MG TABLET 80 MG PO (08:45)
[2020-08-13] MEDS: GLIMEPIRIDE 1 MG TABLET PO (08:45)
[2020-08-13] MEDS: FUROSEMIDE 40 MG TABLET PO (08:46)
[2020-08-13 14:00] VITALS: BP 116/52; PULSE 91; RESP 20; TEMP 37.2; O2SAT 99
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
[2020-08-13 18:47] VITALS: TEMP 37
[2020-08-13 20:02] VITALS: BP 115/50; PULSE 82; RESP 20; TEMP 36.9; O2SAT 98
[2020-08-14 04:58] VITALS: BP 117/52; PULSE 80; RESP 18; TEMP 37; O2SAT 98
[2020-08-14 04:58] LABS: Basophils Absolute Auto 0.2 K/mm3 (0.0-0.1); Basophils Percent Auto 1.2 % (0.2-1.2); Eosinophils Absolute Auto 0.5 K/mm3 (0-0.3); Eosinophils Percent Auto 2.9 % (0-4.4); Hematocrit 36.2 % (42.0-52.0); Hemoglobin 11.9 g/dL (14.0-18.0); Immature Granulocyte Absolute 0.21 K/mm3 (0.00-0.031); Immature Granulocyte Percent A 1.2 % (0-0.5); Lymphocytes Absolute Auto 1.17 K/mm3 (0.9-3.2); Lymphocytes Percent Auto 6.9 % (18.3-44.2); Mean Corpuscular HGB Conc 32.9 g/dl (32-36); Mean Corpuscular Hemoglobin 41.3 pg (26-34); Mean Corpuscular Volume 125.7 fl (80-100); Mean Platelet Volume 10.3 fl (7.4-10.4); Monocytes Percent Auto 5.7 % (2.6-8.5); Neutrophils Percent Auto 82.1 % (45.5-73.1); Platelet Count Result 467 k/mm3 (150-375); Red Blood Count 2.88 M/mm3 (4.6-6.20); Red Cell Distribution Width 13.6 % (11.5-14.5)
[2020-08-14 05:05] LABS: Anion Gap 1 mmol/L (8-16); Blood Urea Nitrogen 21 mg/dL (9-20); Carbon Dioxide 30 mmol/L (22-30); Chloride 105 mmol/L (98-107); Estimated CRCL calculation 64 ml/min; Estimated Glomerular Filt Rate > 60; Glucose 116 mg/dL (75-110); Potassium 3.7 mmol/L (3.4-5.0); Sodium 136 mmol/L (137-145)
[2020-08-14 05:56] LABS: Glucose Point of Care 121 (65-105)
[2020-08-14] MEDS: GLIMEPIRIDE 1 MG TABLET PO (08:57)
[2020-08-14] MEDS: CLOPIDOGREL BISULFATE 75 MG TABLET PO (08:57)
[2020-08-14] MEDS: ATORVASTATIN 40 MG TABLET 80 MG PO (08:57)
[2020-08-14] MEDS: dilTIAZem HCL 30 MG TABLET PO ×2 (08:57→17:48)
[2020-08-14] MEDS: CALCITONIN NASAL 200 UNITS/SPRAY 3.7 ML BOTTLE 1 SPRAY NASAL (08:57)
[2020-08-14] MEDS: FUROSEMIDE 40 MG TABLET PO (08:58)
[2020-08-14] MEDS: HYDROXYUREA (*CHEMO) 500 MG CAPSULE 1000 MG PO (08:58)
[2020-08-14] MEDS: LOSARTAN POTASSIUM 100 MG TABLET PO (08:58)
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
[2020-08-14] MEDS: ACETAMINOPHEN 500 MG TABLET 1000 MG PO (12:12)
[2020-08-14 14:00] VITALS: BP 95/46; PULSE 80; RESP 20; TEMP 36.6; O2SAT 100
--- NOTE | 2020-08-14 15:09 | PCDIET ---
Nutrition Follow-Up Complete: Nutrition Diagnosis: Involuntary weight loss related to decreased appetite as evidenced by patient reporting 50 pound weight loss over the past year which is significant at 24% weight loss. Nutrition Goal: Patient to consume 75% of meals/supplements or greater and maintain weight. Goal met. Patient has consumed 90% of recorded meals since 08/13/20 and is taking Ensure Enlive + Frozen Nutritional Treat Shake with meals TID. Patient reports he is actually starting to taste food a little more and really likes the shakes. No new recommendations at this time. Last recorded weight is 71.8 kg. Recommend obtaining new weight. Bowel Motility: Last documented BM on 08/12/20. Labs Reviewed: Hgb (11.9), Hct (36.2), Glu (116), BUN (21), Na (136), Ca (8.0) Meds Noted: Lipitor, Calcitonin, Plavix, Lasix, Amaryl, Hydrea, Cozaar, Roxicodone Additional Notes: No skin changes documented. Will continue to monitor with same goal. Nutrition Monitoring and Evaluation: Follow up in 5 days.
--- NOTE | 2020-08-14 18:02 | PC.NURSE ---
Kalyan refused his dressing changes, stating at home they did not do everyday. Dressings are dry and intact. Instructed they need to be monitored and would have to be changed tomorrow at which he agreed.
[2020-08-14 18:08] LABS: Add Urine Microscopic? YES; Appearance Urine Clear (Clear); Bilirubin Urine Negative (Negative); Blood Urine Negative (Negative); Color Urine Yellow (Yellow); Glucose Urine UA Negative (Negative); Ketones Urine Negative (Negative); Leukocyte Esterase Ur Trace LEU/UL (Negative); Mucus Urine Rare /lpf; Nitrate Urine Negative (Negative); Protein Urine 1+ mg/dL (Negative); RBC Urine 0-2 /hpf (0-2); Specific Grav Ur 1.017 (1.001-1.035)
[2020-08-14 19:40] VITALS: BP 100/57; PULSE 73; RESP 20; TEMP 36.7; O2SAT 98
[2020-08-15 05:30] VITALS: BP 119/52; PULSE 75; RESP 16; TEMP 36.3; O2SAT 98
[2020-08-15 07:08] LABS: Glucose Point of Care 87 (65-105)
[2020-08-15 08:00] VITALS: PULSE 75; RESP 16; O2SAT 98
[2020-08-15] MEDS: dilTIAZem HCL 30 MG TABLET PO ×2 (08:33→17:11)
[2020-08-15] MEDS: CLOPIDOGREL BISULFATE 75 MG TABLET PO (08:33)
[2020-08-15] MEDS: ATORVASTATIN 40 MG TABLET 80 MG PO (08:33)
[2020-08-15] MEDS: GLIMEPIRIDE 1 MG TABLET PO (08:33)
[2020-08-15] MEDS: CALCITONIN NASAL 200 UNITS/SPRAY 3.7 ML BOTTLE 1 SPRAY NASAL (08:34)
[2020-08-15] MEDS: LOSARTAN POTASSIUM 100 MG TABLET PO (08:34)
[2020-08-15] MEDS: FUROSEMIDE 40 MG TABLET PO (08:34)
[2020-08-15] MEDS: HYDROXYUREA (*CHEMO) 500 MG CAPSULE 1000 MG PO (08:34)
--- NOTE | 2020-08-15 13:29 | WPDNEURORHBP ---
Subjective Date/time seen: 08/15/20 13:29 80 years old right-handed male with major multiple trauma without brain or spinal cord injuries including fracture of the left femur neck, fracture of T3 and T4, burst fracture and compression fracture of L3 and 4 been involved in physical therapy and on room air, his lab yesterday has revealed WBC 10423 with hemoglobin 11.9 with platelet count of 46 and electrolytes normal as well as UA is negative Review of Systems Review of Systems: All systems reviewed & are unremarkable except as noted in HPI and below Functional Status Ambulation Ability Ability to Ambulate 10 Feet: Standby Assistance Ability to Ambulate 50 Feet With 2 Turns: Standby Assistance Ability to Ambulate 150 Feet: Standby Assistance Ambulation Assistive Devices: Walker, Platform Exam Const: General: cooperative, comfortable and no acute distress Nutritional Appearance: average body habitus and thin HENMT: Head: normal to inspection Ears: hearing grossly normal bilaterally General nose exam: Normal external nose present Face and sinus: normal facial exam Mouth: Yes Normal oral and palatal mucosa present Eyes: General: appearance normal, both eyes and all related structures Resp: Effort & Inspection: normal respiratory effort Auscultation: clear to auscultation bilaterally Cardio: Jugular venous distension: no JVD Rate: regular rate Rhythm: regular rhythm GI: Auscultation: normal bowel sounds Skin: Lesions: other ( radiation sanchez) Neuro: General: patient oriented x3, gait normal and moves all extremities Cranial nerves: Yes CN's II-XII intact bilaterally Cognition (Neuro): normal cognition Speech: normal speech Motor exam (neuro): 5/5 motor strength present throughout Sensory Exam: normal sensation Deep tendon reflexes (DTR's): Right triceps reflex intensity grade: 1+, Left triceps reflex intensity grade: 1+, Rt Biceps (C5, C6): 1+, Left biceps reflex intensity grade: 1+, Right brachioradialis reflex intensity grade: 1+, Left brachioradialis reflex intensity grade: 1+, Right patellar reflex intensity grade: 1+, Left patellar reflex intensity grade: 1+, Right ankle reflex intensity grade: 1+ and Left ankle reflex intensity grade: 1+ Plantar Reflex Responses: downgoing: bilateral Objective Data Vital Signs Vital Signs: Vital Signs - 24 hr 08/14/20 14:00 08/14/20 19:40 08/15/20 05:30 Temperature 36.6 C 36.7 C 36.3 C L Pulse Rate 80 73 75 Respiratory Rate 20 20 16 Blood Pressure 95/46 L 100/57 L 119/52 L Pulse Oximetry 100 98 98 08/15/20 08:00 Temperature Pulse Rate 75 Respiratory Rate 16 Blood Pressure Pulse Oximetry 98 Intake/Output Intake/Output: Intake & Output 08/12/20 08/13/20 08/14/20 08/15/20 23:59 23:59 23:59 23:59 Intake Total 021 505 0274 480 Balance 504 629 0700 480 Meds/Results Medications: Active Medications Generic Name Dose Route Start Last Admin Trade Name Freq PRN Reason Stop Dose Admin Acetaminophen 1,000 mg 08/06/20 17:57 08/14/20 12:12 Acetaminophen 500 Mg Tablet PO 1,000 mg Q6H PRN Administration Pain, Mild Atorvastatin Calcium 80 mg 08/07/20 09:00 08/15/20 08:33 Atorvastatin 40 Mg Tablet PO 80 mg DAILY NIKA Administration Calcitonin [place] 1 spray 08/07/20 09:00 08/15/20 08:34 Calcitonin Nasal 200 Units/[place] 3.7 Ml Bottle NASAL 1 spray DAILY NIKA Administration Clopidogrel Bisulfate 75 mg 08/07/20 09:00 08/15/20 08:33 Clopidogrel Bisulfate 75 Mg Tablet PO 75 mg DAILY NIKA Administration Diltiazem HCl 30 mg 08/06/20 17:00 08/15/20 08:33 Diltiazem Hcl 30 Mg Tablet PO 30 mg BID NIKA Administration Furosemide 40 mg 08/07/20 09:00 08/15/20 08:34 Furosemide 40 Mg Tablet PO 40 mg DAILY NIKA Administration Glimepiride 1 mg 08/07/20 08:00 08/15/20 08:33 Glimepiride 1 Mg Tablet PO 1 mg DAILY@0800 NIKA Administration Hydroxyurea 1,000 mg 08/07/20 09:00 08/15/20 08:34 Hydroxyu
[2020-08-15 14:00] VITALS: BP 115/52; PULSE 73; RESP 18; TEMP 36.7; O2SAT 100
[2020-08-15 20:00] VITALS: PULSE 73; RESP 18; O2SAT 100
[2020-08-15 22:00] VITALS: BP 122/55; PULSE 72; RESP 18; TEMP 36.3; O2SAT 98
[2020-08-16 06:00] VITALS: BP 128/55; PULSE 72; RESP 18; TEMP 36.3; O2SAT 98
[2020-08-16 06:44] LABS: Glucose Point of Care 119 (65-105)
[2020-08-16] MEDS: FUROSEMIDE 40 MG TABLET PO (08:59)
[2020-08-16] MEDS: CALCITONIN NASAL 200 UNITS/SPRAY 3.7 ML BOTTLE 1 SPRAY NASAL (08:59)
[2020-08-16] MEDS: HYDROXYUREA (*CHEMO) 500 MG CAPSULE 1000 MG PO (08:59)
[2020-08-16] MEDS: dilTIAZem HCL 30 MG TABLET PO ×2 (09:00→17:24)
[2020-08-16] MEDS: LOSARTAN POTASSIUM 100 MG TABLET PO (09:00)
[2020-08-16] MEDS: GLIMEPIRIDE 1 MG TABLET PO (09:00)
[2020-08-16] MEDS: ATORVASTATIN 40 MG TABLET 80 MG PO (09:00)
[2020-08-16] MEDS: CLOPIDOGREL BISULFATE 75 MG TABLET PO (09:00)
[2020-08-16] MEDS: oxyCODONE HCL (*CRX) 5 MG TAB IR PO (11:46)
[2020-08-16 14:00] VITALS: BP 120/47; PULSE 66; RESP 18; TEMP 36.8; O2SAT 100
--- NOTE | 2020-08-16 18:13 | PC.NURSE ---
Went in to change dressings, patient refused. explained he was discharging tomorrow and may not be able to change before he goes and he pleaded to not change them.
[2020-08-16 20:00] VITALS: PULSE 66; RESP 18; O2SAT 100
[2020-08-16 21:30] VITALS: BP 116/46; PULSE 75; RESP 18; TEMP 36.3; O2SAT 97
[2020-08-17 06:00] VITALS: BP 120/59; PULSE 86; RESP 18; TEMP 37; O2SAT 96
[2020-08-17 06:46] LABS: Glucose Point of Care 102 (65-105)
[2020-08-17] MEDS: HYDROXYUREA (*CHEMO) 500 MG CAPSULE 1000 MG PO (09:25)
[2020-08-17] MEDS: dilTIAZem HCL 30 MG TABLET PO (09:25)
[2020-08-17] MEDS: FUROSEMIDE 40 MG TABLET PO (09:26)
[2020-08-17] MEDS: CLOPIDOGREL BISULFATE 75 MG TABLET PO (09:26)
[2020-08-17] MEDS: GLIMEPIRIDE 1 MG TABLET PO (09:26)
[2020-08-17] MEDS: ATORVASTATIN 40 MG TABLET 80 MG PO (09:26)
[2020-08-17] MEDS: CALCITONIN NASAL 200 UNITS/SPRAY 3.7 ML BOTTLE 1 SPRAY NASAL (09:26)
[2020-08-17] MEDS: LOSARTAN POTASSIUM 100 MG TABLET PO (09:26)
--- NOTE | 2020-08-17 11:55 | WPDNEURORHBP ---
Subjective Date/time seen: 08/17/20 11:55 80 years old right-handed male with major multiple trauma without brain and spinal cord injuries in addition to the history of radiation bones very obvious on clinical examination has been involved in the physical therapy and occupational therapy and has been able to ambulate up to 150ft with standby assistance. there is no new lab and he is afebrile with temp of 37.0? respiration 18 pulse 86 blood pressure 120/59 and pulse ox 96% on room air Review of Systems Review of Systems: All systems reviewed & are unremarkable except as noted in HPI and below Functional Status Ambulation Ability Ability to Ambulate 10 Feet: Standby Assistance Ability to Ambulate 50 Feet With 2 Turns: Standby Assistance Ability to Ambulate 150 Feet: Standby Assistance Ambulation Assistive Devices: Walker, Platform Exam Const: General: cooperative and no acute distress Nutritional Appearance: average body habitus Limitations: physical limitations HENMT: Head: normal to inspection Ears: hearing grossly normal bilaterally General nose exam: Normal external nose present and No nasal discharge present Face and sinus: normal facial exam Mouth: Yes Normal oral and palatal mucosa present Eyes: General: appearance normal, both eyes and all related structures Neck: Neck: full ROM Resp: Effort & Inspection: normal respiratory effort Auscultation: clear to auscultation bilaterally Cardio: Jugular venous distension: no JVD Rate: regular rate Rhythm: regular rhythm GI: Auscultation: normal bowel sounds Skin: Lesions: other ( radiation sanchez with scars) Neuro: General: patient oriented x3 and moves all extremities Cranial nerves: Yes CN's II-XII intact bilaterally Speech: normal speech Motor exam (neuro): 5/5 motor strength present throughout Plantar Reflex Responses: downgoing: bilateral Coordination: [id number] test normal Psych: Appearance: grossly normal Objective Data Vital Signs Vital Signs: Vital Signs - 24 hr 08/16/20 14:00 08/16/20 20:00 08/16/20 21:30 Temperature 36.8 C 36.3 C L Pulse Rate 66 66 75 Respiratory Rate 18 18 18 Blood Pressure 120/47 L 116/46 L Pulse Oximetry 100 100 97 08/17/20 06:00 Temperature 37.0 C Pulse Rate 86 Respiratory Rate 18 Blood Pressure 120/59 L Pulse Oximetry 96 Intake/Output Intake/Output: Intake & Output 08/14/20 08/15/20 08/16/2008/17/21 23:59 23:59 23:59 23:59 Intake Total 9101 523 9864 240 Balance 8975 236 4713 240 Meds/Results Medications: Active Medications Generic Name Dose Route Start Last Admin Trade Name Freq PRN Reason Stop Dose Admin Acetaminophen 1,000 mg 08/06/20 17:57 08/14/20 12:12 Acetaminophen 500 Mg Tablet PO 1,000 mg Q6H PRN Administration Pain, Mild Atorvastatin Calcium 80 mg 08/07/20 09:00 08/17/20 09:26 Atorvastatin 40 Mg Tablet PO 80 mg DAILY NIKA Administration Calcitonin [place] 1 spray 08/07/20 09:00 08/17/20 09:26 Calcitonin Nasal 200 Units/[place] 3.7 Ml Bottle NASAL 1 spray DAILY NIKA Administration Clopidogrel Bisulfate 75 mg 08/07/20 09:00 08/17/20 09:26 Clopidogrel Bisulfate 75 Mg Tablet PO 75 mg DAILY NIKA Administration Diltiazem HCl 30 mg 08/06/20 17:00 08/17/20 09:25 Diltiazem Hcl 30 Mg Tablet PO 30 mg BID NIKA Administration Furosemide 40 mg 08/07/20 09:00 08/17/20 09:26 Furosemide 40 Mg Tablet PO 40 mg DAILY NIKA Administration Glimepiride 1 mg 08/07/20 08:00 08/17/20 09:26 Glimepiride 1 Mg Tablet PO 1 mg DAILY@0800 NIKA Administration Hydroxyurea 1,000 mg 08/07/20 09:00 08/17/20 09:25 Hydroxyurea (*Chemo) 500 Mg Capsule PO 1,000 mg DAILY NIKA Administration Losartan Potassium 100 mg 08/07/20 09:00 08/17/20 09:26 Losartan Potassium 100 Mg Tablet PO 100 mg DAILY NIKA Administration Oxycodone HCl 5 mg 08/06/20 17:57 08/16/20 11:46 Oxycodone Hcl (*Crx) 5 Mg Tab Ir PO 5 mg Q4H PRN
--- NOTE | 2020-08-19 11:40 | PM.DS ---
DS: Admitting Diagnosis Admitting Diagnosis Admitting Diagnosis: multiple fractures DS: Summary Hospital Course Hospital Course: remained stable and improved. Time Spent with Patient Time attestation: :ADMISSION FUNCTION:80 years old right-handed male admitted to the rehab floor with major multiple trauma without brain or spinal cord injury and particular etiological diagnosis of left femur neck fracture, T3-T4 burst fracture, L3-4 compression fracture in addition to comorbid conditions of 1. Diabetes mellitus 2. 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 Aortic dissection. At the time of admission his level of functions were as follows Eating [Set Up Only] Oral Care substantial Toileting Hygiene substantial Shower/Bathing substantial Upper Body Dressing dependent Lower Body Dressing dependent Donning/[place] Footwear partial assistance Rolling Left and Right substantial Sit to Lying substantial Lying to Sitting partial assistance Sit to Stand substantial Bed to Chair Transfers substantial Toilet Transfers substantial Car Transfers substantial Walking 10' substantial Walking 50' with Two Turns unable Walking 150' unable Curb or Step unable 4 Steps unable 12 Steps unable Picking Up Object unable [Wheelchair Mobility 50'] supervising [Wheelchair Mobility 150'] unable GOALS: Eating set up Oral Care set up Toileting Hygiene [INDEPENDENT] Shower/Bathing partial investigative assistant Upper Body Dressing partial assistance Lower Body Dressing partial investigative assistant Donning/[place] Footwear substantial Rolling Left and Right independent Sit to Lying [INDEPENDENT] Lying to Sitting [INDEPENDENT] Sit to Stand [INDEPENDENT] Bed to Chair Transfers [INDEPENDENT] Toilet Transfers [INDEPENDENT] Car Transfers [INDEPENDENT] Walking 10' [INDEPENDENT] Walking 50' with Two Turns [INDEPENDENT] Walking 150' supervision Curb or Step supervision 4 Steps supervision 12 Steps not applicable Picking Up Object [INDEPENDENT] [Wheelchair Mobility 50'] [INDEPENDENT] [Wheelchair Mobility 150'] [INDEPENDENT] DISCHARGE PERFORMANCE: Eating set up Oral Care supervision Toileting Hygiene set up Shower/Bathing partial investigative assistant Upper Body Dressing substantial Lower Body Dressing partial assisted Donning/[place] Footwear supervision Rolling Left and Right [INDEPENDENT] Sit to Lying supervision Lying to Sitting supervision Sit to Stand supervision Bed to Chair Transfers supervision Toilet Transfers supervision Car Transfers supervision Walking 10' supervision Walking 50' with Two Turns supervision Walking 150' supervision Curb or Step partial assistance 4 Steps partial investigative assistant 12 Steps unable Picking Up Object supervision [Wheelchair Mobility 50'] [INDEPENDENT] [Wheelchair Mobility 150'] [INDEPENDENT] during the hospitalization no other consultants were involved in his care, he remained stable and actively involved in therapy at the time of discharge was able to ambulate up to 150ft with standby assistance on platform walker, examination remained stable, his last lab was on August 14, 2019 WBC count was 17,000 with hemoglobin 11.9 platelet count 467, electrolytes were normal routine UA urine was also normal, he was afebrile with temp of 37.0? pulse 86 respiration 18 blood pressure 120/59 and pulse ox 96%. During the entire hospitalization he had no falls or injuries he was discharged to his home with Home Health instruction. Discharge Plan Discharge Patient Disposition: Home Health Service Wound Care Instructions: follow printed instructions and keep dressing dry Discharge Instructions: Per Care Coordination: [facility] will contact you prior to their first visit. [facility] will follow for RN and PT/OT eval and treat. [facility] can be contacted at [phone]. Wound care: change daily and as needed; head to have xeroform, abd pad and k
== END 2020-08-17 13:40 | disposition home health service (06) | DRG 559 ==
PROVIDERS: Admitting Provider Psychiatry & Neurology Neurology; PCP Family Medicine Adolescent Medicine; Visit Provider Psychiatry & Neurology Neurology
DX: S72.012D Unspecified intracapsular fracture of left femur, subsequent encounter for closed fracture with routine healing (principal); I71.00 Dissection of unspecified site of aorta; S22.040D Wedge compression fracture of fourth thoracic vertebra, subsequent encounter for fracture with routine healing; S22.030D Wedge compression fracture of third thoracic vertebra, subsequent encounter for fracture with routine healing; S32.040D Wedge compression fracture of fourth lumbar vertebra, subsequent encounter for fracture with routine healing; S01.01XD Laceration without foreign body of scalp, subsequent encounter; S32.030D Wedge compression fracture of third lumbar vertebra, subsequent encounter for fracture with routine healing; C61 Malignant neoplasm of prostate; D72.829 Elevated white blood cell count, unspecified; D45 Polycythemia vera; E11.9 Type 2 diabetes mellitus without complications; E87.6 Hypokalemia; E83.51 Hypocalcemia; I10 Essential (primary) hypertension; T20.09XD Burn of unspecified degree of multiple sites of head, face, and neck, subsequent encounter; W07.XXXD Fall from chair, subsequent encounter; Z98.890 Other specified postprocedural states; Z85.828 Personal history of other malignant neoplasm of skin; Z87.891 Personal history of nicotine dependence
CPT/HCPCS: 36415; 80048; 81001; 83036; 85025; 97110; 97116; 97161; 97166; 97530; 97535; 97542; A9270